=== PATIENT | female | born 1970 | race Caucasian/White ===

== ENCOUNTER 2017-06-18 10:19 | Emergency (ER) | payer BC, OTHER ==
--- NOTE | 2017-06-18 10:43 | ER Document Report ---
ED Medical Screen (RME) - General Chief Complaint: Facial Injury Stated Complaint: FALL,NECK PAIN Time Seen by Provider: 06/18/17 10:37 Notes: 47-year-old female patient was walking up the staircase in her home with her hands for when she tripped over a dog landing on the floor. She fell face first into an open door frame. She struck her mid upper lip suffering a laceration. She also hit her left lateral eyebrow region. She reports feeling stunned, there was no loss of consciousness. She is complaining of pain to the left posterior neck at the nuchal ridge. This area had muscle transposition when she was 14 years old following craniotomy for brain abscess. The teeth are not loosened. There appears to be a very minor tear to the frenulum, and the laceration in the mid upper lip that should need 1 to 2 sutures. I have greeted and performed a rapid initial assessment of this patient. A comprehensive ED assessment and evaluation of the patient, analysis of test results and completion of the medical decision making process will be conducted by additional ED providers. TRAVEL OUTSIDE OF THE [place] IN LAST 30 DAYS: No - Related Data Allergies/Adverse Reactions: No Known Allergies Allergy (Unverified 06/18/17 10:25) Physical Exam - Vital signs Vitals: Temp Pulse Resp BP Pulse Ox 98.6 F 98 18 134/81 H 100 06/18/17 10:30 06/18/17 10:30 06/18/17 10:30 06/18/17 10:30 06/18/17 10:30 Course - Vital Signs Vital signs: Temp Pulse Resp BP Pulse Ox 98.6 F 98 18 134/81 H 100 06/18/17 10:30 06/18/17 10:30 06/18/17 10:30 06/18/17 10:30 06/18/17 10:30
[2017-06-18] MEDS ORDERED: LIDOCAINE 2% JELLY 30 ML TUBE TOP ONE (11:37)
[2017-06-18] MEDS ORDERED: LIDOCAINE 1% INJ (10 MG/ML) 10 ML MDV INJ ONE ×2 (11:37→12:02)
--- NOTE | 2017-06-18 11:43 | ER Document Report ---
ED General - General Chief Complaint: Facial Injury Stated Complaint: FALL,NECK PAIN Time Seen by Provider: 06/18/17 10:37 Notes: 7-year-old female presents with left facial pain and lip laceration at left onset 4 hours ago when she tripped and fell hitting her face on a door jam. No LOC. She has moderate left-sided neck pain at the base of the skull. No malocclusion or loose teeth. Bleeding controlled. Denies numbness or tingling anywhere. No blood thinners. TRAVEL OUTSIDE OF THE [place] IN LAST 30 DAYS: No - Related Data Allergies/Adverse Reactions: No Known Allergies Allergy (Unverified 06/18/17 10:25) Home Medications: Current Home Medications Bupropion HCl [Wellbutrin Xl] 300 mg PO DAILY 06/18/17 [History] Dextroamphetamine/Amphetamine [Dextroamp-Amphetamin 30 mg Tab] 2 tab PO DAILY [History] Paroxetine HCl [Paroxetine HCl] 20 mg PO DAILY 06/18/17 [History] Triamterene/Hydrochlorothiazid [Triamterene-Hctz 37.5-25 mg Cp] 1 tab PO DAILY 06/18/17 [History] Past Medical History - Social History Smoking Status: Never Smoker Chew tobacco use (# tins/day): No Frequency of alcohol use: Occasional Drug Abuse: None Family History: None Patient has suicidal ideation: No Patient has homicidal ideation: No Renal/ Medical History: Denies: Hx Peritoneal Dialysis Past Surgical History: Reports: Hx Orthopedic Surgery - bunion rt foot Review of Systems - Review of Systems Notes: REVIEW OF SYSTEMS GEN: Denies fever, chills, weight loss ENT: Denies sore throat, nasal discharge, ear pain. Lip laceration. EYES: Denies blurry vision, eye pain, discharge CV: Denies chest pain, palpitations, edema RESP: Denies cough, shortness of breath, wheezing GI: Denies abdominal pain, nausea, vomiting, diarrhea MSK: Denies joint pain/swelling, edema, positive left neck pain SKIN: Denies rash, skin lesions LYMPH: Denies swollen glands/lymph nodes NEURO: Denies headache, focal weakness or numbness, dizziness PSYCH: Denies depression, suicidal or homicidal ideation PHYSICAL EXAMINATION General: No acute distress, well-nourished Head: Atraumatic, normocephalic. No step-offs tenderness or ecchymosis along the left orbit or premaxillary region. No alexandre sign. ENT: Mouth normal, oropharynx moist, no exudates or tonsillar enlargement. Minimal tearing of the internal upper midline frenulum, 6 mm lip laceration confined to the mucosal surface, not through and through. Teeth intact. No jaw pain or tenderness, no malocclusion. Eyes: Conjunctiva normal, pupils equal, lids normal Neck: No JVD, supple, no guarding, good range of motion. Minimal paraspinous left neck tenderness below the base of the skull without deformity. CVS: Normal rate, regular rhythm, no murmurs Resp: No resp distress, equal and normal breath sounds bilaterally GI: Nondistended, soft, no tenderness to palpation, no rebound or guarding Ext: No deformities, no edema, normal range of motion in upper and lower ext Back: No CVA or midline TTP Skin: No rash, warm Lymphatic: No lymphadeopathy noted Neuro: Awake, alert. Face symmetric. GCS 15. Physical Exam - Vital signs Vitals: Temp Pulse Resp BP Pulse Ox 98.6 F 98 18 134/81 H 100 06/18/17 10:30 06/18/17 10:30 06/18/17 10:30 06/18/17 10:30 06/18/17 10:30 Course - Re-evaluation Re-evalutation: 06/18/17 11:41 Patient presents with minimal trauma to the face after a trip and fall with no loss of consciousness. Isolated lip trauma is apparent. There is no apparent trauma to the facial bones, mandible, there is no signs of basilar skull fracture. Patient is awake and alert not on blood thinners. She has no midline neck tenderness, is Nexus negative and also does not need head imaging. I will repair her lip laceration, her tetanus is up-to-date and she will be discharged home. I have discussed with the patient there likely diagnosis, aftercare plan, follow -up plans and my usual and customary return precautions. They verbalized understanding of this. - Vital Signs Vital signs: Temp Pulse Resp BP Pulse Ox 98.6 F 98 18 134/81 H 100 06/18/17 10:30 06/18/17 10:30 06/18/17 10:30 06/18/17 10:30 06/18/17 10:30 Procedures - Laceration/Wound Repair Lower Face Time completed: 11:59 Wound length (cm): 6 Wound's Depth, Shape: Into muscle, Linear Laceration pre-procedure: Betadine prep applied, Sterile drapes applied Anesthetic type: 1% Lidocaine Volume Anesthetic (mLs): 2 Wound explored: Clean Irrigated w/ Saline (mLs): 30 Wound Repaired With: Sutures Suture Size/Type: 6:0 Number of Sutures: 3 - Fast-absorbing chromic gut Complications: No Discharge - Discharge Clinical Impression: Lip laceration Qualifiers: Encounter type: initial encounter Qualified Code(s): S01.511A - Laceration without foreign body of lip, initial encounter Condition: Good Disposition: HOME, SELF-CARE Instructions: Antibiotic Ointment Protection ([facility]), Laceration Care ([facility]) Additional Instructions: Your stitches will dissolve on their own and there is no need to return to have them removed. If you develop worsening headache, nausea vomiting or confusion please return to the emergency room.
[2017-06-18] MEDS ORDERED: LIDOCAINE 1% INJ-PF (10 MG/ML) 30 ML SDV INJ ONE (12:30)
[2017-06-18 12:43] VITALS: BP 125/84
== END 2017-06-18 12:42 | disposition home or self-care (01) ==
LOC: ER 10:19
PROC: 0HQ1XZZ Repair Face Skin, External Approach (ICD-10-PCS; principal; 2017-06-18)
DX: S01.511A Laceration without foreign body of lip, initial encounter (principal); M54.2 Cervicalgia; W19.XXXA Unspecified fall, initial encounter; Z79.899 Other long term (current) drug therapy
CPT/HCPCS: 99283

== ENCOUNTER → 2020-07-17 | Outpatient (CLI) | payer BC ==
--- NOTE | 2020-07-17 15:06 | RADIOLOGY REPORT (SQ) ---
EXAM DESCRIPTION: PELVIS AP IMAGES COMPLETED DATE/TIME: 07/17/2020 2:57 pm REASON FOR STUDY: PELVIC PAIN R10.2 PELVIC AND PERINEAL PAIN COMPARISON: None. NUMBER OF VIEWS: One view TECHNIQUE: AP Pelvis LIMITATIONS: None. FINDINGS: MINERALIZATION: Normal. HIPS: No acute fracture or dislocation. No worrisome bone lesions. PELVIS AND SACRUM: No acute fracture or dislocation. No worrisome bone lesions. PUBIS AND ISCHIUM: No acute fracture. LOWER LUMBAR SPINE: No significant findings as visualized. SOFT TISSUES: No findings. OTHER: IUD is in place. There is a tubular radiopacity overlying the left lower quadrant. Presumabl y something on or behind the patient. Clinical correlation is needed. IMPRESSION: 1. IUD is in place. 2. Skeletal structures appear normal. 3. Tubular radiopacity overlying the left lower quadrant presumably something on or behind the patie nt. Clinical correlation is needed. Foreign body cannot be excluded. COMMENT: Pelvic fractures are often occult on plain radiographs. If strong clinical suspicion for f racture, recommend CT or MR. TECHNICAL DOCUMENTATION: JOB ID: [id number] [employer]- All Rights Reserved Reading location - IP/workstation name: [email or web address]
== END ==
LOC: RAD 14:40
PROVIDERS: ATTEND Family Medicine
DX: S39.93XA Unspecified injury of pelvis, initial encounter (principal); R01.2 Other cardiac sounds; X58.XXXA Exposure to other specified factors, initial encounter; Z97.5 Presence of (intrauterine) contraceptive device
CPT/HCPCS: 72170

== ENCOUNTER → 2020-07-21 | Outpatient (CLI) | payer BC ==
--- NOTE | 2020-07-21 13:49 | RADIOLOGY REPORT (SQ) ---
EXAM DESCRIPTION: CT PELVIS WITHOUT IMAGES COMPLETED DATE/TIME: 07/21/2020 1:29 pm REASON FOR STUDY: pelvic traume S39.93XA UNSPECIFIED INJURY OF PELVIS, INITIAL ENCOUNTER COMPARISON: None. TECHNIQUE: CT scan of the pelvis performed without intravenous or oral contrast. Images reviewed wi th soft tissue and bone windows. Reconstructed coronal and sagittal MPR images reviewed. All images stored on PACS. All CT scanners at this facility use dose modulation, iterative reconstruction, and/or weight based d osing when appropriate to reduce radiation dose to as low as reasonably achievable (ALARA). [facility]: Dose Right [facility]: CareDose [facility]: Dose Right [facility]: Teradose 4D [facility]: [employer] RADIATION DOSE: mGy. LIMITATIONS: None. FINDINGS: PELVIC BONES: No acute fracture. No worrisome bone lesions. VISUALIZED SPINE: No acute findings. HIP(S): No acute fracture or dislocation. No worrisome bone lesions. PELVIC SOFT TISSUES: No significant findings. EXTRAPELVIC SOFT TISSUES: No significant findings. OTHER: Nonobstructive nephrolithiasis. IMPRESSION: NO ACUTE OR SIGNIFICANT FINDINGS. TECHNICAL DOCUMENTATION: JOB ID: [id number] Quality ID # [id number]: Final reports with documentation of one or more dose reduction techniques (e.g., Au tomated exposure control, adjustment of the mA and/or kV according to patient size, use of iterative reconstruction technique) 2010 [employer]- All Rights Reserved Reading location - IP/workstation name: [email or web address]
== END ==
LOC: RAD 13:00
PROVIDERS: ATTEND Physician Assistant Medical
DX: S39.93XA Unspecified injury of pelvis, initial encounter (principal); X58.XXXA Exposure to other specified factors, initial encounter
CPT/HCPCS: 72192